=== PATIENT | male | born 1950 | race Caucasian/White ===

== ENCOUNTER 2023-04-19 19:02 | Emergency (ER) | payer MEDICARE, OTHER ==
[~2023-04-19] VITALS: Ht 175.3 cm; Wt 74.8 kg
[2023-04-19 19:02] VITALS: BP 161/110; PULSE 96; RESP 20; TEMP 98.2; O2SAT 98
== END 2023-04-19 19:40 | disposition home or self-care (01) ==
LOC: ER 19:02
DX: F41.9 Anxiety disorder, unspecified (principal); I48.91 Unspecified atrial fibrillation; I10 Essential (primary) hypertension
CPT/HCPCS: 93005; 99283